=== PATIENT | male | born 1985 | race Caucasian/White ===

== ENCOUNTER 2020-05-16 10:21 | Emergency (ER) | payer OTHER ==
[~2020-05-16] VITALS: Ht 180.3 cm; Wt 103.2 kg
[2020-05-16] MEDS ORDERED: LIDOCAINE 1% MDV 20ML VIAL SC ONE (11:15)
[2020-05-16] MEDS ORDERED: BOOSTRIX/ADACEL VACCINE (DIPHTH/PERTUSS/ACELL/TETANUS) 0.5ML SYR IM ONE (11:15)
--- NOTE | 2020-05-16 11:28 | REP ---
INDICATION: injury to L index finger r/o bone involvement COMPARISON: None. TECHNIQUE: AP, lateral, bilateral oblique views left 2nd digit. FINDINGS: There is a transverse minimally displaced fracture through the distal phalanx terminal tuft with overlying soft tissue injury. No foreign body. IMPRESSION: Transverse fracture through the distal phalanx terminal tuft. <Electronically signed by Mauro Rothman > 05/16/20 [id number]
[2020-05-16] MEDS ORDERED: ceFAZolin SOD 2 GM in IV 1 EA IV ONE (11:30)
[2020-05-16] MEDS ORDERED: KEFL500C17 PO (12:14)
[2020-05-16 12:53] VITALS: BP 145/84
== END 2020-05-16 12:56 | disposition home or self-care (01) ==
LOC: M ED 10:21
DX: S62.631B Displaced fracture of distal phalanx of left index finger, initial encounter for open fracture (principal); W23.1XXA Caught, crushed, jammed, or pinched between stationary objects, initial encounter; Y92.019 Unspecified place in single-family (private) house as the place of occurrence of the external cause; Y93.9 Activity, unspecified; Y99.9 Unspecified external cause status; Z88.2 Allergy status to sulfonamides
CPT/HCPCS: 12032; 73140; 90471; 90715; 96365; 99284; J0690

== ENCOUNTER → 2022-01-31 | Outpatient (CLI) | payer OTHER, MEDICAID ==
[~2022-01-31] MED LIST: KEFL500C17 PO
[2022-01-31 14:10] LABS: HEMATOCRIT 50.8 % (42.0-52.0); HEMOGLOBIN 16.6 g/dl (13.5-17.5); MEAN CORPUSCULAR HEMOGLOBIN 31.1 pg (27.0-33.0); MEAN CORPUSCULAR HGB CONC 32.7 g/dl (32.0-36.5); MEAN CORPUSCULAR VOLUME 95.1 fl (80.0-96.0); PLATELET COUNT, AUTOMATED 186 10^3/uL (150-450); RED BLOOD COUNT 5.34 10^6/uL (4.30-6.10); WHITE BLOOD COUNT 4.1 10^3/uL (4.0-10.0)
[2022-01-31 14:52] LABS: ALBUMIN 4.1 GM/DL (3.2-5.2); BILIRUBIN,DIRECT 0.2 MG/DL (0.0-0.2); BILIRUBIN,TOTAL 0.9 MG/DL (0.2-1.0); TOTAL PROTEIN 7.6 GM/DL (6.4-8.2)
== END ==
LOC: M PLALAB 12:08
PROVIDERS: ATTEND Psychiatry & Neurology Psychiatry
DX: F63.81 Intermittent explosive disorder (principal); F43.10 Post-traumatic stress disorder, unspecified; Z59.00 Homelessness unspecified; F43.23 Adjustment disorder with mixed anxiety and depressed mood; Z65.9 Problem related to unspecified psychosocial circumstances

== ENCOUNTER → 2022-03-28 | Outpatient (CLI) | payer OTHER, MEDICAID | LOC: M EKG 13:15 | PROVIDERS: ATTEND Nurse Practitioner Psychiatric/Mental Health | DX: F90.2 Attention-deficit hyperactivity disorder, combined type (principal) ==